=== PATIENT | male | born 1960 | race Caucasian/White ===

== ENCOUNTER 2018-08-17 13:51 | Emergency (ER) | payer OTHER ==
[2018-08-17] MEDS ORDERED: Morphine 4 MG/ML VIAL ONE ×3 (13:55→17:34)
[2018-08-17 14:41] LABS: #Eosinphils 0.1 thou/uL (0.0-0.7); #Lymphocytes 1.2 thou/uL (1.20-3.40); #Monocytes 0.4 thou/uL (0.11-0.59); %Basophils 0.5 % (0.0-1.0); %Eosinophils 1.8 % (0.0-10.0); %Lymphocytes 25.7 % (21.0-51.0); %Monocytes 8.3 % (0.0-10.0); %Neutrophils 63.7 % (42.0-75.0); Hemoglobin 13.9 g/dL (14.0-18.0); Mean Corpuscular HGB CONC 34.5 g/dL (32.0-36.0); Mean Corpuscular Hemoglobin 32.7 pg (27.0-31.0); Mean Corpuscular Volume 94.6 fL (78.0-98.0); Platelet Count 196 thou/uL (130-400); Red Blood Cell (RBC) Count 4.25 mill/uL (4.70-6.10); White Blood Cell (WBC) Count 4.7 thou/uL (4.8-10.8)
[2018-08-17 14:47] LABS: INR-International Normal Ratio 1.1; PTT 27.5 SEC (22.9-36.1); Prothrombin Time 14.2 SEC (12.0-14.7)
--- NOTE | 2018-08-17 14:54 | RAD ---
FRadiograph chest one view: HISTORY: Chest trauma FINDINGS: The visualized lung bob are clear. The cardiomediastinal silhouette is normal. No pneumothorax. IMPRESSION: No acute cardiopulmonary findings.
--- NOTE | 2018-08-17 14:56 | RAD ---
FRadiograph left femur 2 views: 08/17/2018 at 2:29 PM HISTORY: Trauma FINDINGS: There is total left knee replacement arthroplasty hardware with long stems that extends superiorly to the mid femoral diaphysis and mid tibial diaphysis. Severe osteopenia and cortical thickening of dis jacques femur and proximal tibia. There is an acute spiral fracture of the femoral mid shaft around the proximal aspect of the prosthet ic metallic stem. Approximately half shaft width posterior and three quarter shaft width medial displ acement, and medial and posterior angulation, of distal fragment. IMPRESSION: Acute, traumatic, oblique fracture of left femoral midshaft, around the proximal metallic stem of a k nee replacement prosthesis.
[2018-08-17 15:02] LABS: ALT (SGPT) 12 U/L (8-55); AST (SGOT) 18 U/L (5-34); Albumin 4.2 g/dL (3.5-5.0); Alkaline Phosphatase 93 U/L (40-150); Anion Gap 13 mmol/L (10-20); BUN (Urea Nitrogen) 21 mg/dL (8.4-25.7); Bilirubin, Total 0.6 mg/dL (0.2-1.2); Calc. Creatinine Clearance 0 mL/min (70-130); Calcium 8.7 mg/dL (7.8-10.44); Carbon Dioxide 27 mmol/L (22-29); Chloride 102 mmol/L (98-107); Estimated GFR-MDRD 59; Globulin 2.8 g/dL (2.4-3.5); Glucose 145 mg/dL (70-105); Potassium 4.7 mmol/L (3.5-5.1); Sodium 137 mmol/L (136-145)
[2018-08-17] MEDS ORDERED: Ondansetron PF 4 MG/2 ML Vial ONE (15:42)
== END 2018-08-17 18:32 | disposition short-term general hospital (02) ==
LOC: ERS 13:51
DX: S72.332A Displaced oblique fracture of shaft of left femur, initial encounter for closed fracture (principal); I10 Essential (primary) hypertension; B20 Human immunodeficiency virus [HIV] disease; Z79.899 Other long term (current) drug therapy; Z79.891 Long term (current) use of opiate analgesic; W01.0XXA Fall on same level from slipping, tripping and stumbling without subsequent striking against object, initial encounter
CPT/HCPCS: 36415; 71045; 80053; 85025; 85610; 85730; 86850; 86900; 86901; 96374; 96375; 96376; J2270; J2405